=== PATIENT | male | born 1950 | race Caucasian/White ===

== ENCOUNTER 2018-12-11 06:27 | Day surgery (SDC) | payer MEDICARE ==
[~2018-12-11 06:27] MED LIST: Acetaminophen TAB* 325 MG PO PRN; Buffered Lidocaine 1% SYRIN* 1 ML/SYRINGE INTRADERM ONE
[2018-12-11 09:09] VITALS: BP 180/90
--- NOTE | 2018-12-11 09:21 | OP ---
Amended report to correct patient account number. OPERATIVE NOTE: DATE OF OPERATION: 12/11/18 DATE OF : 46 SURGEON: Chico Wall MD PREOPERATIVE DIAGNOSIS: Cataract, left eye. POSTOPERATIVE DIAGNOSIS: Cataract, left eye. OPERATIVE PROCEDURE: Extracapsular cataract extraction with intraocular lens implant, left eye. PROCEDURE: The patient was brought to the operating room after being given 1/2 % Alcaine with epinephrine drops in the preoperative area. The eye was prepped and draped in the usual sterile fashion. Sterile drape and eyelid speculum were placed. Again, topical 1/2% Alcaine with epinephrine was given. A paracentesis incision was made at the 3 o'clock position with the No.75 blade. Clear cornea incision 2.2 x 2.2-mm was created at the 6 o'clock position starting at the anterior limbus using the 2.2-mm keratome. The anterior chamber was irrigated with 0.4 mL of 1% non-preservative intracameral lidocaine and filled with DisCoVisc. A capsulorrhexis was completed using the cystotome and the Utrata forceps. Hydrodissection was performed with balanced salt solution. The lens nucleus was removed with the Phacoemulsification handpiece without incident. Cortex was removed with the irrigation-aspiration handpiece. The capsular bag was re-inflated using DisCoVisc and an [id number] implant was inserted with the shooter, oriented to the 43-degree meridian. Horizontal reference walker with the patient in the seated position in the preoperative area. The lens was followed by an iStent inject and inserted at the 8 o'clock and 10 o'clock positions with the shooters. The irrigation-aspiration handpiece was used to remove all residual DisCoVisc. The eye was refilled with balanced salt solution and the wound checked and found to be watertight. Topical Maxitrol drops were given. [id number]/[facility] #: [id number] [facility]ALTH[facility]ord[facility]
[2018-12-11] MEDS ORDERED: Povidone Iodine 5% OPTH* 30 ML BTL ONE (12:24)
[2018-12-11] MEDS ORDERED: Lidocaine 1% MPF ** 5 ML VIAL ONE (12:24)
[2018-12-11] MEDS ORDERED: Lidocaine 2% w/ EPI 1:200,000* 20 ML SDV VIAL ONE (12:24)
[2018-12-11] MEDS ORDERED: Phenylephrine OPHTH SOL 2.5%* 2 ML ONE (12:24)
[2018-12-11] MEDS ORDERED: Proparacaine 0.5% OPHTH.SOL* 15 ML BTL ONE (12:24)
[2018-12-11] MEDS ORDERED: acetaZOLAMIDE TAB* 250 MG ONE (12:24)
[2018-12-11] MEDS ORDERED: Neomycin/Polymy/Dex OPTH.SUSP* MAXITROL 0.1% 5 ML ONE (12:24)
[2018-12-11] MEDS ORDERED: Ketorolac 0.5% OPHTH (NF) 0.5 % 5 ML BTL ONE (12:24)
[2018-12-11] MEDS ORDERED: Cyclopentolate 1% OPTH.SOL* 2 ML BTL ONE (12:24)
--- NOTE | 2019-01-13 12:14 | OP ---
DATE OF OPERATION: 12/11/2018 - [facility] DATE OF : 1950. SURGEON: Chico Wall M.D. PREOPERATIVE DIAGNOSIS: Cataract left eye and glaucoma. POSTOPERATIVE DIAGNOSIS: Cataract left eye and glaucoma. OPERATIVE PROCEDURE: Extracapsular cataract extraction with intraocular lens implant and iStent left eye. DESCRIPTION OF PROCEDURE: The patient was brought to the operating room after being given 1/2% Alcaine with epinephrine drops in the preoperative area. The eye was prepped and draped in the usual sterile fashion. Sterile drape and eyelid speculum were placed. Again, topical 1/2% Alcaine with epinephrine was given. A paracentesis incision was made at the 3 o'clock position with the No.75 blade. Clear cornea incision 2.2 x 2.2-mm was created at the 6 o'clock position starting at the anterior limbus using the 2.2-mm keratome. The anterior chamber was irrigated with 0.4 mL of 1% non-preservative intracameral lidocaine and filled with DisCoVisc. A capsulorrhexis was completed using the cystotome and the Utrata forceps. Hydrodissection was performed with balanced salt solution. The lens nucleus was removed with the Phacoemulsification handpiece without incident. Cortex was removed with the irrigation-aspiration handpiece. The capsular bag was re-inflated using DisCoVisc and an [id number] implant was inserted with the shooter and oriented to the 43 degree meridian. Horizontal reference walker were made with the patient in a seated position in the preoperative area. This was followed by an iStent inject inserted at the 8 o'clock and 10 o'clock positions using the shooter. The irrigation-aspiration handpiece was used to remove all residual DisCoVisc. The eye was refilled with balanced salt solution and the wound checked and found to be watertight. Topical Maxitrol drops were given. [id number]/[facility] #: [id number] [facility]
--- NOTE | 2019-01-13 12:14 | OP ---
DATE OF OPERATION: 12/11/2018 [facility] DATE OF : 1950. SURGEON: Chico Wall M.D. PREOPERATIVE DIAGNOSIS: Cataract left eye. POSTOPERATIVE DIAGNOSIS: Cataract left eye. OPERATIVE PROCEDURE: Extracapsular cataract extraction with intraocular lens implant and iStent left eye. DESCRIPTION OF PROCEDURE: The patient was brought to the operating room after being given 1/2% Alcaine with epinephrine drops in the preoperative area. The eye was prepped and draped in the usual sterile fashion. Sterile drape and eyelid speculum were placed. Again, topical 1/2% Alcaine with epinephrine was given. A paracentesis incision was made at the 3 o'clock position with the No.75 blade. Clear cornea incision 2.2 x 2.2-mm was created at the 6 o'clock position starting at the anterior limbus using the 2.2-mm keratome. The anterior chamber was irrigated with 0.4 mL of 1% non-preservative intracameral lidocaine and filled with DisCoVisc. A capsulorrhexis was completed using the cystotome and the Utrata forceps. Hydrodissection was performed with balanced salt solution. The lens nucleus was removed with the Phacoemulsification handpiece without incident. Cortex was removed with the irrigation-aspiration handpiece. The capsular bag was re-inflated using DisCoVisc and an [id number] implant was inserted with the shooter, followed by an iStent inject inserted at the 8 o'clock and 10 o'clock position with its shooter. The irrigation- aspiration handpiece was used to remove all residual DisCoVisc. The eye was refilled with balanced salt solution and the wound checked and found to be watertight. Topical Maxitrol drops were given. [id number]/[facility] #: [id number] [facility]
== END 2018-12-11 09:05 | disposition home or self-care (01) ==
LOC: OREAST 06:27
PROVIDERS: ATTEND Specialist
DX: H25.812 Combined forms of age-related cataract, left eye (principal); H40.1121 Primary open-angle glaucoma, left eye, mild stage; H18.52 Epithelial (juvenile) corneal dystrophy; I10 Essential (primary) hypertension; M19.90 Unspecified osteoarthritis, unspecified site
CPT/HCPCS: A9270-GY; C1783; V2787

== ENCOUNTER 2021-01-07 10:55 | Inpatient (IN) ==
[2021-01-07 11:23] LABS: Venous Bicarbonate HCO3 26.8 mmol/L (24-28)
[2021-01-07 11:24] LABS: ABS Basophils 0.1 10^3/ul (0-0.2); ABS Eosinophils 0.2 10^3/ul (0-0.6); ABS Lymphocytes 1.3 10^3/ul (1.0-4.8); ABS Monocytes 0.8 10^3/ul (0-0.8); ABS Neutrophils 4.7 10^3/ul (1.5-7.7); Eosinophil % 3.3 %; Hematocrit 43 % (42-52); Hemoglobin 14.8 g/dL (14.0-18.0); Lymphocyte % 18.2 %; Mean Corpuscular HGB Conc 34 g/dL (31-36); Mean Corpuscular Hemoglobin 36 pg (27-31); Mean Corpuscular Volume 104 fL (80-94); Mean Platelet Volume 8.2 fL (7.4-10.4); Nucleated Red Blood Cells % 0.1; Platelet Count 286 10^3/uL (150-450); Red Blood Count 4.13 10^6 /uL (4.18-5.48); Red Cell Distribution Width 17 % (10-15); White Blood Count 7.1 10^3/uL (3.5-10.8)
[2021-01-07 11:43] LABS: Albumin 3.9 g/dL (3.2-5.2); Albumin/Globulin Ratio 1.1 (1-3); Calcium 9.6 mg/dL (8.6-10.3); EGFR Non-African American 44.6 (>60); Globulin 3.7 g/dL (2-4); Total Bilirubin 0.9 mg/dL (0.2-1.0); Total Protein 7.6 g/dL (6.4-8.9)
[2021-01-07 11:46] LABS: Urine Appearance Clear; Urine Bilirubin Negative (Negative); Urine Blood Negative (Negative); Urine Color Straw; Urine Glucose 3+(>=500 mg/dL) (Negative); Urine Ketones Negative (Negative); Urine Nitrite Negative (Negative); Urine Protein Negative (Negative); Urine Specific Gravity 1.026 (1.002-1.030); Urine Urobilinogen Negative (Negative)
[2021-01-07 12:00] LABS: Potassium 5.3 mmol/L (3.5-5.0)
[2021-01-07] MEDS ORDERED: NORMOSOL-R pH 7.4 1000 mL BAG 1,000 ML IV SCH ×2 (12:00→13:00)
[2021-01-07 12:01] LABS: Magnesium 2.2 mg/dL (1.9-2.7)
[2021-01-07 12:19] LABS: TSH Ultra Thyroid Stim Horm 7.38 mcIU/mL (0.34-5.60)
[2021-01-07 12:21] LABS: Free T4 1.23 ng/dL (0.61-1.12)
[2021-01-07] MEDS ORDERED: Insulin Infusion 100unit/100mL 100 UNIT/100 ML BAG IV SCH ×2 (13:00)
[2021-01-07] MEDS ORDERED: NORMOSOL-R pH 7.4 1000 mL BAG 1,000 ML IV ONE ×2 (13:00)
[2021-01-07 15:35] LABS: Phosphorus 3.7 mg/dL (2.5-5.0)
[2021-01-07 16:19] LABS: Glucose Confirmatory 613 mg/dL (70-100)
[2021-01-07 16:41] LABS: Folate 13.9 ng/mL (5.90-24.80)
[2021-01-07] MEDS: Enoxaparin 40 MG/0.4 ML SYR SUBCUT SCH (16:50)
[2021-01-07 18:23] LABS: Calcium 8.8 mg/dL (8.6-10.3); EGFR African American 75.6 (>60); EGFR Non-African American 62.5 (>60); Potassium 3.6 mmol/L (3.5-5.0)
[2021-01-07] MEDS: NORMOSOL-R pH 7.4 1000 mL BAG 1,000 ML IV SCH (18:24)
[2021-01-07 19:48] LABS: Glucose Confirmatory 424 mg/dL (70-100)
[2021-01-07] MEDS ORDERED: Gadoteridol (CONTRAST) 279.3 MG/ML 10 ML IV ONE (20:45)
[2021-01-07] MEDS: Latanoprost 0.005% 2.5 ml BTL BOTH EYES SCH (22:01)
[2021-01-08] MEDS ORDERED: Dextrose 50% VIAL 50 ml IV PRN (00:26)
[2021-01-08] MEDS: Multivitamins/Minerals TAB PO SCH ×2 (00:33→07:56)
[2021-01-08] MEDS: Cyanocobalamin INJ 1,000 MCG/ML VIAL 1 ML VIAL IM SCH ×2 (01:07→07:56)
[2021-01-08 01:48] LABS: Calcium 8.3 mg/dL (8.6-10.3); EGFR African American 80.5 (>60); EGFR Non-African American 66.5 (>60); Potassium 3.4 mmol/L (3.5-5.0)
[2021-01-08 04:40] LABS: ABS Basophils 0.1 10^3/ul (0-0.2); ABS Eosinophils 0.8 10^3/ul (0-0.6); ABS Lymphocytes 2.6 10^3/ul (1.0-4.8); ABS Monocytes 0.8 10^3/ul (0-0.8); ABS Neutrophils 4.5 10^3/ul (1.5-7.7); Eosinophil % 8.8 %; Hematocrit 40 % (42-52); Hemoglobin 13.9 g/dL (14.0-18.0); Mean Corpuscular HGB Conc 35 g/dL (31-36); Mean Corpuscular Hemoglobin 36 pg (27-31); Mean Corpuscular Volume 102 fL (80-94); Mean Platelet Volume 7.9 fL (7.4-10.4); Platelet Count 272 10^3/uL (150-450); Red Blood Count 3.87 10^6 /uL (4.18-5.48); Red Cell Distribution Width 17 % (10-15); White Blood Count 8.7 10^3/uL (3.5-10.8)
[2021-01-08 04:56] LABS: EGFR African American 88.9 (>60); EGFR Non-African American 73.5 (>60); Magnesium 2.3 mg/dL (1.9-2.7); Phosphorus 2.9 mg/dL (2.5-5.0); Potassium 3.3 mmol/L (3.5-5.0)
[2021-01-08] MEDS: NORMOSOL-R pH 7.4 1000 mL BAG 1,000 ML IV SCH (05:31)
[2021-01-08] MEDS ORDERED: Dextrose 50% Syringe 50 ml 25 GM/50 ML SYRINGE IV PUSH PRN (05:46)
[2021-01-08] MEDS: KCL 20 MEQ/100 ML IVPREMIX 20 MEQ/100 ML BAG IV SCH ×2 (09:30→11:51)
[2021-01-08] MEDS ORDERED: KCL 20 MEQ/100 ML IVPREMIX 20 MEQ/100 ML BAG IV SCH (10:00)
[2021-01-08] MEDS ORDERED: Lactated Ringers 1000 ml BAG 1,000 ML IV SCH (10:00)
[2021-01-08] MEDS ORDERED: Potassium Chloride LIQUID 20 MEQ/15 ML LIQUID PO ONE ×2 (11:50→17:00)
[2021-01-08] MEDS: Enoxaparin 40 MG/0.4 ML SYR SUBCUT SCH (14:59)
[2021-01-08 15:27] LABS: Glucose Confirmatory 447 mg/dL (70-100)
[2021-01-08] MEDS ORDERED: Insulin GLARGINE 100 un/ml 10 ml VIAL SUBCUT ONE (15:31)
[2021-01-08] MEDS: Latanoprost 0.005% 2.5 ml BTL BOTH EYES SCH (20:57)
[2021-01-09 06:55] LABS: ABS Basophils 0.1 10^3/ul (0-0.2); ABS Eosinophils 0.7 10^3/ul (0-0.6); ABS Lymphocytes 2.1 10^3/ul (1.0-4.8); ABS Monocytes 0.6 10^3/ul (0-0.8); ABS Neutrophils 2.9 10^3/ul (1.5-7.7); Eosinophil % 10.8 %; Hematocrit 38 % (42-52); Hemoglobin 13.3 g/dL (14.0-18.0); Lymphocyte % 32.9 %; Mean Corpuscular HGB Conc 35 g/dL (31-36); Mean Corpuscular Hemoglobin 36 pg (27-31); Mean Corpuscular Volume 103 fL (80-94); Mean Platelet Volume 8.1 fL (7.4-10.4); Platelet Count 224 10^3/uL (150-450); Red Blood Count 3.69 10^6 /uL (4.18-5.48); Red Cell Distribution Width 17 % (10-15); White Blood Count 6.4 10^3/uL (3.5-10.8)
[2021-01-09 07:10] LABS: Calcium 7.7 mg/dL (8.6-10.3); EGFR African American 101.7 (>60); Phosphorus 2.4 mg/dL (2.5-5.0); Potassium 4.2 mmol/L (3.5-5.0)
[2021-01-09] MEDS ORDERED: Potassium Phosphate IV 15 MMOLE in NS 0.9% 250 ml 250 ML IVPB ONE (07:26)
[2021-01-09] MEDS: Multivitamins/Minerals TAB PO SCH (07:48)
[2021-01-09] MEDS: Cyanocobalamin INJ 1,000 MCG/ML VIAL 1 ML VIAL IM SCH (07:48)
[2021-01-09] MEDS ORDERED: Insulin GLARGINE 100 un/ml 10 ml VIAL SUBCUT SCH (09:00)
[2021-01-09 10:55] LABS: HDL Cholesterol 30.3 mg/dL
[2021-01-09] MEDS: Enoxaparin 40 MG/0.4 ML SYR SUBCUT SCH (17:50)
[2021-01-09] MEDS: Latanoprost 0.005% 2.5 ml BTL BOTH EYES SCH (20:57)
[2021-01-10 04:43] LABS: Calcium 7.7 mg/dL (8.6-10.3); EGFR Non-African American 75.2 (>60); Magnesium 1.9 mg/dL (1.9-2.7); Phosphorus 3.1 mg/dL (2.5-5.0); Potassium 4.2 mmol/L (3.5-5.0)
[2021-01-10] MEDS ORDERED: Insulin GLARGINE 100 un/ml 10 ml VIAL SUBCUT ONE (07:59)
[2021-01-10] MEDS: Multivitamins/Minerals TAB PO SCH (09:13)
[2021-01-10 10:27] LABS: Ceruloplasmin 26.7 mg/dL
[2021-01-10 12:37] VITALS: BP 156/95
[2021-01-10 21:33] LABS: Copper Level 0.89 mcg/mL (0.75-1.45)
[2021-01-11] MEDS ORDERED: Insulin GLARGINE 100 un/ml 10 ml VIAL SUBCUT SCH (09:00)
[2021-01-11 17:52] LABS: Albumin 2.6 g/dL (3.4-4.7); Albumin/Globulin Ratio 0.74; Gamma Globulin 1.1 g/dL (0.6-1.6)
[2021-01-12 16:29] LABS: Flag, M-protein Isotype Negative (Negative)
== END 2021-01-10 15:35 | disposition home or self-care (01) | DRG 638 ==
LOC: ED 10:55 → ICU 11:55
PROVIDERS: ADMIT Nurse Practitioner Adult Health; ATTEND Internal Medicine

== ENCOUNTER 2023-07-08 06:16 | Inpatient (IN) ==
[2023-07-08] MEDS: Lactated Ringers 1000 ml BAG 1,000 ML IV ONE ×2 (06:46→07:44)
[2023-07-08 06:52] LABS: Hematocrit 38.9 % (38-53); Mean Corpuscular Hemoglobin 34.2 pg (27-33); Mean Corpuscular Hgb Conc 33.5 g/dL (31-36); Mean Corpuscular Volume 102.1 fL (80-97); Platelet Count 128 10^3/uL (150-450); Red Blood Count 3.81 10^6/uL (4.06-5.63); Red Cell Distribution Width 18.5 % (12-17); White Blood Count 6.5 10^3/uL (3.6-10.2)
[2023-07-08 06:57] LABS: INR 1.28 (0.83-1.13)
[2023-07-08 07:08] LABS: Albumin 3.9 g/dL (3.2-5.2); Albumin/Globulin Ratio 1.4 (1-3); C Reactive Protein 102.98 mg/L (<8.01); Calcium 8.7 mg/dL (8.6-10.3); Creatinine, Serum 1.79 mg/dL (0.67-1.17); Globulin 2.8 g/dL (2-4); Potassium 2.9 mmol/L (3.5-5.0); Total Bilirubin 2.7 mg/dL (0.2-1.0); Total Protein 6.7 g/dL (6.4-8.9)
[2023-07-08 07:36] LABS: Magnesium 2.2 mg/dL (1.9-2.7)
[2023-07-08 07:38] LABS: ABS Monocytes 0.9 10^3/uL (0.0-1.1); ABS Neutrophils 4.5 10^3/uL (1.5-7.6); ABS Nucleated RBC 0.02 10^3/ul; Eosinophil % 0.1 %; Lymphocyte % 15.9 %; Nucleated Red Blood Cells % 0.3 %/100WBC (0.0-0.8)
[2023-07-08] MEDS: Potassium Chloride LIQUID 20 MEQ/15 ML LIQUID PO ONE (07:43)
[2023-07-08 08:23] LABS: Creatine Kinase 1010 U/L (10-223)
[2023-07-08 08:26] LABS: High Sensitivity Troponin 1 Hr 196 pg/mL (<20)
[2023-07-08 08:31] LABS: Urine Appearance Clear; Urine Bilirubin Negative (Negative); Urine Blood 2+ (Negative); Urine Color Amber; Urine Glucose 1+(50 mg/dL) (Negative); Urine Ketones 2+ (Negative); Urine Nitrite Negative (Negative); Urine Protein 2+(100 mg/dL) (Negative); Urine Specific Gravity 1.018 (1.002-1.030); Urine Urobilinogen Positive (Negative)
[2023-07-08 08:39] LABS: Urine Bacteria Absent (Absent); Urine Red Blood Cell Trace(0-2/hpf) (Absent); Urine White Blood Cell Trace(0-5/hpf) (Absent)
[2023-07-08] MEDS: Piperacillin/Tazobac 3.375 BAG 3.375 GM/100 ML BAG IV ONE (09:11)
[2023-07-08] MEDS: Ondansetron 4 mg VIAL 2 MG/ML 2 ml VIAL IV ONE (10:04)
[2023-07-08] MEDS: Iodixanol (CONTRAST) 320 MG/ML 100 ML SDV IV ONE (11:56)
[2023-07-08] MEDS ORDERED: Senna TAB 8.6 mg TAB PO PRN (13:00)
[2023-07-08] MEDS: KCL 20 MEQ/100 ML IVPREMIX 20 MEQ/100 ML BAG IV SCH (14:42)
[2023-07-08] MEDS: Enoxaparin 30 MG/0.3 ML SYR SUBCUT SCH (14:44)
[2023-07-08] MEDS ORDERED: Dextrose 50% Syringe 50 ml 25 GM/50 ML SYRINGE IV PUSH PRN (15:28)
[2023-07-08] MEDS ORDERED: Ondansetron 4 mg VIAL 2 MG/ML 2 ml VIAL IV PRN (15:29)
[2023-07-08 18:59] LABS: Ferritin 846.9 ng/mL (24-336)
[2023-07-08 19:03] LABS: Folate 7.16 ng/mL (5.90-24.80)
[2023-07-08] MEDS: Latanoprost 0.005% 2.5 ml BTL BOTH EYES SCH (20:45)
[2023-07-09 06:55] LABS: Hemoglobin 11.8 g/dL (13.2-16.3); Mean Corpuscular Hemoglobin 33.8 pg (27-33); Mean Corpuscular Hgb Conc 33.6 g/dL (31-36); Mean Corpuscular Volume 100.6 fL (80-97); Red Blood Count 3.48 10^6/uL (4.06-5.63); Red Cell Distribution Width 17.8 % (12-17)
[2023-07-09 07:26] LABS: ALT 62 U/L (7-52); Albumin 3.2 g/dL (3.2-5.2); Albumin/Globulin Ratio 1.4 (1-3); Alkaline Phosphatase 181 U/L (35-149); Anion Gap 15 mmol/L (2-16); Blood Urea Nitrogen 26 mg/dL (6-24); CO2 Carbon Dioxide 27 mmol/L (22-32); Calcium 8.1 mg/dL (8.6-10.3); Chloride 91 mmol/L (101-111); Creatinine, Serum 1.59 mg/dL (0.67-1.17); Globulin 2.3 g/dL (2-4); Glucose 217 mg/dL (70-100); Sodium 133 mmol/L (135-145); Total Bilirubin 2.1 mg/dL (0.2-1.0); Total Protein 5.5 g/dL (6.4-8.9)
[2023-07-09 07:28] LABS: ABS Monocytes 0.7 10^3/uL (0.0-1.1); ABS Neutrophils 3.2 10^3/uL (1.5-7.6); ABS Nucleated RBC 0.02 10^3/ul; Eosinophil % 0.5 %; Lymphocyte % 20.3 %; Nucleated Red Blood Cells % 0.4 %/100WBC (0.0-0.8); Platelet Count 99 10^3/uL (150-450)
[2023-07-09] MEDS: Insulin GLARGINE 100 un/ml 10 ml VIAL SUBCUT SCH (08:44)
[2023-07-09 10:07] LABS: Potassium Redraw 3.2 mmol/L (3.5-5.0)
[2023-07-09] MEDS: KCL 20 MEQ/100 ML IVPREMIX 20 MEQ/100 ML BAG IV SCH (11:31)
[2023-07-09] MEDS ORDERED: Calcium Carb (TUMS) 500 mg CHEW TAB PO PRN (15:04)
[2023-07-09] MEDS: Senna TAB 8.6 mg TAB PO SCH (15:40)
[2023-07-09] MEDS: Calcium Carb (TUMS) 500 mg CHEW TAB PO ONE (15:40)
[2023-07-10 06:03] LABS: Hematocrit 34.3 % (38-53); Hemoglobin 11.7 g/dL (13.2-16.3); Mean Corpuscular Hemoglobin 34.2 pg (27-33); Mean Corpuscular Volume 100.6 fL (80-97); Mean Platelet Volume 8.1 fL (7.5-11.2); Platelet Count 106 10^3/uL (150-450); Red Blood Count 3.41 10^6/uL (4.06-5.63); Red Cell Distribution Width 17.5 % (12-17); White Blood Count 4.3 10^3/uL (3.6-10.2)
[2023-07-10 06:25] LABS: Calcium 8.6 mg/dL (8.6-10.3); Creatinine, Serum 1.4 mg/dL (0.67-1.17); Potassium 3.3 mmol/L (3.5-5.0); eGFR CKD-EPI 52.4 (>60)
[2023-07-10 07:35] LABS: ABS Lymphocytes 1.1 10^3/uL (1.0-4.8); ABS Monocytes 0.8 10^3/uL (0.0-1.1); ABS Neutrophils 2.3 10^3/uL (1.5-7.6); ABS Nucleated RBC 0.02 10^3/ul; Acanthocytes 1+; Basophilic Stippling 2+; Eosinophil % 1.1 %; Lymphocyte % 25.3 %; Nucleated Red Blood Cells % 0.5 %/100WBC (0.0-0.8); Polychromasia 2+
[2023-07-10] MEDS ORDERED: Ondansetron 4 mg VIAL 2 MG/ML 2 ml VIAL IV PRN (08:38)
[2023-07-10 10:14] VITALS: BP 129/80
[2023-07-12] MEDS ORDERED: Dextrose 50% Syringe 50 ml 25 GM/50 ML SYRINGE IV PUSH PRN (17:53)
[2023-07-12] MEDS ORDERED: Sodium Chloride 5% OPTH OINT 3.5 gm TUBE BOTH EYES SCH (18:00)
[2023-07-12] MEDS ORDERED: Enoxaparin 40 MG/0.4 ML SYR SUBCUT SCH (18:00)
[2023-07-12] MEDS ORDERED: Insulin GLARGINE 100 un/ml 10 ml VIAL SUBCUT SCH (21:00)
[2023-07-12] MEDS ORDERED: Sodium Chloride 5% OPTH.SOL 15 ML BTL BOTH EYES SCH (21:00)
[2023-07-13] MEDS ORDERED: Aspirin EC 81 mg TAB.EC (enteric coated) PO SCH (09:00)
== END 2023-07-10 14:28 | disposition home or self-care (01) | DRG 281 ==
LOC: ED 06:16 → EDHOLD 13:00 → MEDTELE 15:07
PROVIDERS: ADMIT Internal Medicine; ATTEND Internal Medicine

== ENCOUNTER 2023-07-12 00:29 | Observation (INO) ==
[2023-07-12] MEDS: Lactated Ringers 1000 ml BAG 1,000 ML IV ONE (01:13)
[2023-07-12 01:27] LABS: Hematocrit 35.6 % (38-53); Hemoglobin 11.9 g/dL (13.2-16.3); Mean Corpuscular Hemoglobin 34.1 pg (27-33); Mean Corpuscular Hgb Conc 33.3 g/dL (31-36); Mean Corpuscular Volume 102.3 fL (80-97); Mean Platelet Volume 8.1 fL (7.5-11.2); Platelet Count 174 10^3/uL (150-450); Red Blood Count 3.48 10^6/uL (4.06-5.63); Red Cell Distribution Width 17.7 % (12-17); White Blood Count 3.9 10^3/uL (3.6-10.2)
[2023-07-12 01:49] LABS: Albumin 3.4 g/dL (3.2-5.2); Albumin/Globulin Ratio 1.4 (1-3); Creatinine, Serum 1.67 mg/dL (0.67-1.17); Globulin 2.4 g/dL (2-4); Total Bilirubin 1.3 mg/dL (0.2-1.0); Total Protein 5.8 g/dL (6.4-8.9); eGFR CKD-EPI 42.4 (>60)
[2023-07-12] MEDS ORDERED: Dextrose 50% Syringe 50 ml 25 GM/50 ML SYRINGE IV PUSH PRN ×2 (02:12→04:18)
[2023-07-12 02:28] LABS: ABS Eosinophils 0.1 10^3/uL (0.0-0.5); ABS Lymphocytes 0.7 10^3/uL (1.0-4.8); ABS Neutrophils 2.1 10^3/uL (1.5-7.6); ABS Nucleated RBC 0.03 10^3/ul; Eosinophil % 1.6 %; Lymphocyte % 18.3 %; Nucleated Red Blood Cells % 0.8 %/100WBC (0.0-0.8)
[2023-07-12 02:29] LABS: Macrocytosis 1+
[2023-07-12 02:38] LABS: Urine Appearance Clear; Urine Bilirubin Negative (Negative); Urine Blood Negative (Negative); Urine Color Light-Yellow; Urine Glucose 4+ (>=1000 mg/dL) (Negative); Urine Ketones Negative (Negative); Urine Nitrite Negative (Negative); Urine Protein Negative (Negative); Urine Urobilinogen Negative (Negative); Urine pH 7.5 (5.0-8.0)
[2023-07-12] MEDS: NS 0.9% 1000 ml BAG 1,000 ML IV ONE (02:46)
[2023-07-12 04:25] LABS: Glucose Confirmatory 404 mg/dL (70-100)
[2023-07-12] MEDS ORDERED: Sodium Chloride 5% OPTH OINT 3.5 gm TUBE BOTH EYES SCH (23:30)
[2023-07-13 00:29] LABS: Glucose Confirmatory 432 mg/dL (70-100)
[2023-07-13] MEDS: Insulin GLARGINE 100 un/ml 10 ml VIAL SUBCUT ONE (00:48)
[2023-07-13] MEDS: Sodium Chloride 5% OPTH.SOL 15 ML BTL BOTH EYES SCH (05:56)
[2023-07-13 06:05] LABS: Hematocrit 32.3 % (38-53); Mean Platelet Volume 7.7 fL (7.5-11.2); Platelet Count 158 10^3/uL (150-450); Red Blood Count 3.23 10^6/uL (4.06-5.63); Red Cell Distribution Width 17.8 % (12-17); White Blood Count 3.9 10^3/uL (3.6-10.2)
[2023-07-13 06:27] LABS: Calcium 8.5 mg/dL (8.6-10.3); Creatinine, Serum 1.24 mg/dL (0.67-1.17); Magnesium 1.7 mg/dL (1.9-2.7); Potassium 3.2 mmol/L (3.5-5.0); eGFR CKD-EPI 60.6 (>60)
[2023-07-13] MEDS: Enoxaparin 40 MG/0.4 ML SYR SUBCUT SCH (08:09)
[2023-07-13] MEDS: Magnesium Sulfate IV 1GM/100ML 1 GM/100 ML BAG IV ONE (09:30)
[2023-07-13] MEDS: KCL 20 MEQ/100 ML IVPREMIX 20 MEQ/100 ML BAG IV SCH (10:42)
[2023-07-13] MEDS ORDERED: Dextrose 50% Syringe 50 ml 25 GM/50 ML SYRINGE IV PUSH PRN (16:39)
[2023-07-14 06:44] LABS: Hematocrit 33.6 % (38-53); Hemoglobin 11.3 g/dL (13.2-16.3); Mean Corpuscular Hemoglobin 34.5 pg (27-33); Mean Corpuscular Hgb Conc 33.6 g/dL (31-36); Mean Corpuscular Volume 102.6 fL (80-97); Mean Platelet Volume 7.8 fL (7.5-11.2); Platelet Count 181 10^3/uL (150-450); Red Blood Count 3.27 10^6/uL (4.06-5.63); Red Cell Distribution Width 18.2 % (12-17); White Blood Count 3.9 10^3/uL (3.6-10.2)
[2023-07-14 07:36] LABS: Calcium 8.4 mg/dL (8.6-10.3); Creatinine, Serum 1.58 mg/dL (0.67-1.17); Magnesium 1.8 mg/dL (1.9-2.7); Potassium 3.8 mmol/L (3.5-5.0); eGFR CKD-EPI 45.3 (>60)
[2023-07-14 08:51] LABS: ABS Eosinophils 0.1 10^3/uL (0.0-0.5); ABS Monocytes 0.8 10^3/uL (0.0-1.1); ABS Neutrophils 1.9 10^3/uL (1.5-7.6); ABS Nucleated RBC 0.01 10^3/ul; Eosinophil % 1.6 %; Lymphocyte % 26.9 %; Nucleated Red Blood Cells % 0.2 %/100WBC (0.0-0.8)
[2023-07-14] MEDS: Potassium Chlor 20 meq TAB.ER PO ONE (10:51)
[2023-07-14 18:44] LABS: TSH Ultra Thyroid Stim Horm 5.1 mcIU/mL (0.34-5.60)
[2023-07-14 18:46] LABS: Free T4 1.05 ng/dL (0.61-1.12)
[2023-07-15 05:49] LABS: Hematocrit 33.2 % (38-53); Hemoglobin 11.1 g/dL (13.2-16.3); Mean Corpuscular Hemoglobin 34.1 pg (27-33); Mean Corpuscular Hgb Conc 33.5 g/dL (31-36); Mean Corpuscular Volume 101.7 fL (80-97); Mean Platelet Volume 7.3 fL (7.5-11.2); Platelet Count 189 10^3/uL (150-450); Red Blood Count 3.26 10^6/uL (4.06-5.63); White Blood Count 3.9 10^3/uL (3.6-10.2)
[2023-07-15 06:05] LABS: Calcium 8.8 mg/dL (8.6-10.3); Creatinine, Serum 1.5 mg/dL (0.67-1.17); Magnesium 1.8 mg/dL (1.9-2.7); Potassium 3.6 mmol/L (3.5-5.0); eGFR CKD-EPI 48.3 (>60)
[2023-07-15 06:29] LABS: ABS Lymphocytes 0.9 10^3/uL (1.0-4.8); ABS Monocytes 0.8 10^3/uL (0.0-1.1); ABS Neutrophils 2.2 10^3/uL (1.5-7.6); Eosinophil % 1.3 %; Lymphocyte % 22.7 %; Nucleated Red Blood Cells % 0.1 %/100WBC (0.0-0.8)
[2023-07-15 13:57] VITALS: BP 132/85
== END 2023-07-15 14:35 | disposition home or self-care (01) ==
LOC: ED 00:29 → EDHOLD 00:29 → SSU 21:43
PROVIDERS: ADMIT Student in an Organized Health Care Education/Training Program; ATTEND Student in an Organized Health Care Education/Training Program